=== PATIENT | male | born 1950 | race Caucasian/White ===

== ENCOUNTER → 2017-05-29 | Outpatient (CLI) | payer MEDICARE, OTHER ==
[2015-08-18 12:35] VITALS: BP 130/68
[~2017-05-29] MED LIST: GADOBUTROL 10 MMOL/10 ML VIAL IV ONE; HYDR-971 AD; LISI-334 PO; LORA10CA PO; PARO20TA99 PO
--- NOTE | 2017-05-29 12:44 | KCIC ---
MRI of the lumbar spine without contrast 05/29/2017 CLINICAL HISTORY: Chronic low back pain with right leg numbness. TECHNIQUE: Unenhanced T1-weighted and T2-weighted sagittal and axial and inversion recovery sagittal images of the lumbar spine were obtained. FINDINGS: Comparison is made to an outside MRI of the lumbar spine dated 08/21/2011. Very mild S-shaped curvature of the thoracolumbar spine is seen. Degenerative signal changes are seen involving all of the disks of the lumbar spine. Degenerative signal changes are seen within the marrow surrounding these discs. Loss of height of the L5-S1 disc is noted. The conus medullaris is within normal limits in morphology, position, and signal characteristics. A 1.3 cm hemangioma is seen involving the L2 vertebral body. At the L1-2 and L2-3 disc spaces there are mild generalized disc bulges. Degenerative changes are seen involving the facet joints bilaterally. These findings do not result in significant central spinal canal or neural foraminal stenosis. At the L3-4 disc space there is a mild to moderate generalized disc bulge. Superimposed on this disc bulge is a right lateral focal disc protrusion. This measures 4 mm in AP diameter. Degenerative changes are seen involving the facet joints bilaterally. There is mild to moderate ligamentum flavum hypertrophy bilaterally. These findings when combined result in mild central spinal canal stenosis. Mild right neural foraminal stenosis is seen. The left neural foramen is patent. At the L4-5 disc space there is a mild to moderate generalized disc bulge. Degenerative changes are seen involving the facet joints bilaterally. There is mild ligamentum flavum hypertrophy bilaterally. These findings when combined do not result in significant central spinal canal stenosis. Mild bilateral neural foraminal stenosis is seen. At the L5-S1 disc space there is a mild to moderate generalized disc bulge. Degenerative changes are seen involving the facet joints bilaterally. There is mild ligamentum flavum hypertrophy bilaterally. These findings when combined do not result in significant central spinal canal stenosis. Mild bilateral neural foraminal stenosis is seen. The degenerative changes have progressed slightly since the previous examination. IMPRESSION: The changes of degenerative disc disease are seen involving the lumbar spine. These findings result in mild central spinal canal stenosis at L3-4. Mild right neural foraminal stenosis is seen at L3-4. Mild bilateral neural foraminal stenosis is seen at L4-5 and L5-S1. Electronically signed by: Marek Ferguson MD (05/29/2017 12:41 PM) [id number]
--- NOTE | 2017-05-29 12:53 | KCIC ---
MRA of the brain without contrast 05/29/2017 Clinical History: Left pulsatile tinnitus for one month. Technique: Unenhanced FLAIR and diffusion-weighted axial images of the brain were obtained. Using 3-D time of flight techniques, a MRA of the major arterial structures surrounding the redding of [place] was performed. Findings: The FLAIR images demonstrate generalized parenchymal atrophy. Patchy areas of increased signal intensity is seen within the periventricular white matter of both cerebral hemispheres consistent with areas of minimal small vessel ischemic disease. No area of restricted diffusion is seen. MRA images demonstrate the course of the petrous, cavernous and supraclinoid internal carotid arteries to be within normal limits. The basilar artery is very small but patent. The P1 segments of both posterior cerebral arteries appear to be hypoplastic which is a normal variation. The A1 segment of the right anterior cerebral artery is hypoplastic. This is a normal variation. The anterior, middle and posterior cerebral arteries and their branches are within normal limits. No area of stenosis or occlusion is seen. No intracranial aneurysm is noted. IMPRESSION: The course of the internal carotid arteries through the skull base is within normal limits. No area stenosis or occlusion is seen. Electronically signed by: Marek Ferguson MD (05/29/2017 12:49 PM) [id number]
--- NOTE | 2017-05-29 13:02 | KCIC ---
MRA of the Neck without and with Contrast 05/29/2017 Clinical History: Pulsatile auditory changes in the left ear for one month. Technique: Using 2D time of flight techniques, a MRA of the carotid and verterbral arterial structures within the neck was performed. After the dynamic intravenous administration of 8 cc of Gadavist, enhanced, 3D time of flight coronal images of the neck and upper chest were obtained. 3D MIP images were generated in multiple projections for a contrast-enhanced MRA. Findings: The origins of the brachiocephalic, left common carotid and left subclavian arteries from the thoracic aortic arch are within normal limits. The origin of the right common carotid is within normal limits. The proximal left subclavian artery is tortuous but appears to be patent. The origins of both vertebral arteries are not well visualized on this study. The common carotid artery is tortuous but patent. The right common carotid artery is patent. Mild atheromatous plaque formation is seen involving both carotid bifurcations. No area stenosis or occlusion is seen. The internal carotid arteries within the neck are within normal limits. No hemodynamically significant stenosis or area of occlusion is seen. The left vertebral artery is dominant. Both vertebral arteries demonstrate normal antegrade flow. No area stenosis or occlusion is seen. The right vertebral artery appears to terminate as the right posterior inferior cerebellar artery. There is a normal variation. Impression: Mild atheromatous plaque formation is seen involving both carotid bifurcations. No hemodynamically significant stenosis or area of occlusion is seen. Stenosis calculation for MRA are based on measurement of the distal internal carotid artery diameter in accordance with the NASCET methodology. Electronically signed by: Marek Ferguson MD (05/29/2017 12:58 PM) [id number]
== END | disposition home or self-care (01) ==
LOC: KCIC MRI 10:36
PROVIDERS: ATTEND Family Medicine
DX: M48.061 Spinal stenosis, lumbar region without neurogenic claudication (principal); M51.36 Other intervertebral disc degeneration, lumbar region; H93.A2 Pulsatile tinnitus, left ear; I70.90 Unspecified atherosclerosis; R20.0 Anesthesia of skin
CPT/HCPCS: 70544; 70549; 72148; 82565; A9585